=== PATIENT | female | born 1960 | race Caucasian/White ===

== ENCOUNTER 2017-08-07 19:43 | Inpatient (IN) ==
--- NOTE | 2017-08-07 19:49 | Emergency Department Note ---
Disposition Clinical Impression: Acute exacerbation of chronic obstructive pulmonary disease (COPD) Disposition: Admitted As Inpatient Condition: Good Referrals: Nica Smith CNP [Primary Care Provider] - General Adult HPI - General Stated complaint: Can't breath Time Seen by Provider: 08/07/17 19:45 Source: patient Mode of arrival: EMS Limitations: no limitations Nursing Notes Reviewed: Yes Vital Signs Reviewed: Yes - History of Present Illness HPI Narrative: Patient complains of a three-day history of increasing shortness of breath. She denies any chest pain. She had a cough with some whitish sputum production. She thinks she may have had a fever but she is not sure. She feels better here upon arrival to the emergency department. Onset (ago): day(s) (3) Location: chest Radiation: non-radiation Quality: other (pain in chest with cough) - Related Data Home Medications Medication Instructions Recorded Confirmed Albuterol Sulfate [Albuterol 2 puff IH Q4HR 01/09/16 08/07/17 Inhaler] Aspirin [Lo-Dose Aspirin EC] 81 mg PO DAILY 01/09/16 08/07/17 Budesonide/Formoterol 160/4.5 1 puff IH DAILY 01/09/16 08/07/17 [Symbicort 160/4.5] Ibuprofen [Motrin] 600 mg PO Q8HR PRN 01/09/16 08/07/17 Loratadine [Allergy Relief] 10 mg PO DAILY 01/09/16 08/07/17 Melatonin 5 mg PO HS 01/09/16 08/07/17 Metoprolol [Lopressor] 50 mg PO BID 01/09/16 08/07/17 Nitroglycerin [Nitrostat] 0.4 mg SL PRN PRN 01/09/16 08/07/17 Omeprazole [PriLOSEC] 20 mg PO DAILY 01/09/16 08/07/17 Ranolazine [Ranexa] 1,000 mg PO BID 01/09/16 08/07/17 TraZODone 50 mg PO HS 01/09/16 08/07/17 metFORMIN [Glucophage] 500 mg PO DAILY 01/09/16 08/07/17 Cholecalciferol (Vitamin D3) 2,000 unit PO 08/07/17 [Vitamin D3] Clopidogrel [Plavix] 75 mg PO DAILY 08/07/17 08/07/17 Cyanocobalamin (Vitamin B-12) 1,000 mcg PO DAILY 08/07/17 08/07/17 [Vitamin B-12] Gabapentin [Neurontin] 300 mg PO TID 08/07/17 08/07/17 Lisinopril [Zestril] 20 mg PO DAILY 08/07/17 08/07/17 Pantoprazole Sodium [Protonix] 40 mg PO QAM 08/07/17 08/07/17 Rosuvastatin Calcium [Crestor] 10 mg PO DAILY 08/07/17 08/07/17 Previous Rx's Medication Instructions Recorded Ondansetron ODT [Zofran ODT] 4 mg SL Q6HR PRN #12 tab.rapdis 01/09/16 Allergies Allergy/AdvReac Type Severity Reaction Status Date / Time aminophylline Allergy Anaphylaxis Verified 08/07/17 19:55 atorvastatin AdvReac Gastrointestinal Verified 08/07/17 19:55 Upset Penicillins AdvReac Hives Verified 08/07/17 19:55 Sulfa (Sulfonamide AdvReac Hives Verified 08/07/17 19:55 Antibiotics) regadenosen Allergy Swelling Uncoded 08/07/17 19:55 of Lip/Tongue/Throat All systems ED: reviewed and negative except as stated. Review of Systems: As Per HPI Constitutional: Denies: fever, chills, weakness, weight change Eyes: Denies: eye pain, eye discharge, vision change ENT ED: Denies: ear pain, throat pain, dental pain, hearing loss, epistaxis, congestion, dysphagia Cardiovascular: Denies: chest pain, palpitations, dyspnea on exertion, edema, syncope Respiratory: Reports: as per HPI, cough, dyspnea, wheezes. Denies: hemoptysis, stridor Gastrointestinal: Denies: abdominal pain, nausea, vomiting, diarrhea, constipation, hematemesis, melena, hematochezia Genitourinary: Denies: dysuria, frequency, hematuria, discharge Musculoskeletal: Denies: back pain, neck pain, arthralgia, myalgia Integumentary: Denies: rash, abrasion, lesions Neurological: Denies: headache, weakness, numbness, paresthesias, confusion, abnormal gait, vertigo Psychiatric: Denies: anxiety, depression, suicidal thoughts, homicidal thoughts , auditory hallucinations, visual hallucinations Endocrine: Denies: fatigue Hematological/Lymphatic: Denies: easy bleeding, easy bruising Allergic/Immunologic: Denies: facial swelling, urticaria Past Medical History - Past Medical History Attestation: Yes The following information was validated with the patient. Source: patient, nursing notes reviewed Medical history: Reports: asthma, cancer, COPD, diabetes, hypertension, myocardial infarction Surgical history: Reports: angioplasty/stent, cancer surgery, cholecystectomy Psychiatric history: Reports: no psych history - Social History Smoking Status: Former smoker Smokeless Tobacco Status: No Alcohol use: Reports: none Drug use: Reports: none Physical Exam - General Limitations: no limitations General appearance: alert, in no apparent distress - Head Head exam: atraumatic, normocephalic, normal inspection - Eye Eye exam: Present: normal appearance, PERRL, EOMI - ENT ENT exam: normal exam, normal oropharynx, mucous membranes moist - Neck Neck exam: Present: normal inspection, full ROM, trachea midline - Chest Chest inspection: Present: normal inspection, symmetric chest wall rise - Respiratory Respiratory exam: Present: wheezes, prolonged expiratory phase. Absent: respiratory distress - Cardiovascular Cardiovascular exam: Present: regular rate, normal rhythm, normal heart sounds - Abdominal Exam Abdominal exam: Present: soft - Extremities Exam Extremities exam: Present: normal inspection - Back Exam Back exam: Present: normal inspection - Neurological Exam Neurological exam: Present: alert, oriented X3 - Psychiatric Psychiatric exam: Present: normal affect, normal mood - Skin Skin exam: Present: warm, dry, intact Medical Decision Making - [facility] Narrative Medical decision making narrative: I discussed case Dr. Linda who agrees the the hospital and has accepted the admission - Lab Data Lab results reviewed: Yes I reviewed the patient's lab results. - Radiology Data Radiology results reviewed: Yes I reviewed the patient's radiology results. - EKG Data EKG #1 EKG attestation: Yes I reviewed and interpreted this EKG. EKG results narrative: EKG shows a relative sinus tachycardia with a rate of 103 bpm. SD interval 122 ms QRS duration 81 ms QT and QTC intervals 341 and 401 ms respectively. R axis of 63 degrees. Relative sinus tachycardia this is a relatively negative EKG
[2017-08-07] MEDS ORDERED: Ipratropium/Albuterol Neb 3 ML IH ONE ×2 (19:56→20:53)
[2017-08-07] MEDS ORDERED: methylPREDNISolone 125 MG/2 ML VIAL IVP ONE (19:57)
[2017-08-07] MEDS ORDERED: 0.9 % Sodium Chloride 1,000 ML IVC SCH ×2 (20:00→22:38)
[2017-08-07 20:26] LABS: Basophils % 0.4 %; Eosinophils % 0.3 %; Hematocrit 52.7 % (35.3-44.9); Hemoglobin 17.8 g/dL (11.5-15.4); Immature Granulocytes % 0.1 % (0-4); Lymphocytes # 1.2 K/mcL (0.6-4.6); Lymphocytes % 15.5 %; Mean Corpuscular HGB Conc 33.8 g/dL (31.6-35.5); Mean Corpuscular Hemoglobin 31.1 pg (28.0-33.3); Mean Platelet Volume 11.9 fL (9.4-12.4); Monocytes # 0.7 K/mcL (0.0-1.3); Monocytes % 8.5 %; Neutrophils # 5.8 K/mcL (1.6-8.9); Platelet Count 157 K/mcL (140-400); Red Blood Count 5.73 M/mcL (3.82-4.97); Red Cell Distribution Width 12.9 % (11.5-14.5); Segmented Neutrophils % 75.2 %
[2017-08-07 20:40] LABS: BUN/Creatinine Ratio 18 (6-26); Blood Urea Nitrogen 12 mg/dL (6-20); Calcium 9.4 mg/dL (8.6-10.3); Carbon Dioxide 28 mEq/L (23-29); Chloride 101 mEq/L (98-107); Glucose 154 mg/dL (70-105); Osmolality,Calculated 287 (280-300); Potassium 3.6 mEq/L (3.5-5.1); Sodium 137 mEq/L (136-145); eGFR For African Americans > 60 (> 60); eGFR For Non-African Americans > 60 (> 60)
[2017-08-07 20:43] LABS: Troponin I < 0.03 ng/mL (< 0.04)
[2017-08-07] MEDS ORDERED: Acetaminophen 325 MG TABLET PO ONE (21:16)
[2017-08-07] MEDS ORDERED: Naloxone 0.4 MG/ML INJ IVP PRN (22:38)
[2017-08-07] MEDS ORDERED: Ondansetron ODT 4 MG TAB.RAPDIS SL PRN (23:38)
[2017-08-07] MEDS ORDERED: Azithromycin 250 MG TABLET PO ONE (23:45)
[2017-08-07] MEDS: Ipratropium/Albuterol Neb 3 ML IH SCH (23:45)
[2017-08-08] MEDS: Gabapentin 300 MG CAPSULE PO SCH ×4 (00:11→21:08)
[2017-08-08] MEDS: Melatonin 3 MG TABLET PO SCH ×2 (00:11→21:08)
[2017-08-08] MEDS: Ranolazine 500 MG TAB.ER.12H PO SCH ×3 (00:11→21:08)
[2017-08-08] MEDS: traZODone 50 MG TABLET PO SCH ×2 (00:12→21:08)
[2017-08-08] MEDS: Ipratropium/Albuterol Neb 3 ML IH SCH ×7 (01:00→23:15)
[2017-08-08 05:35] LABS: Hematocrit 50.1 % (35.3-44.9); Hemoglobin 16.6 g/dL (11.5-15.4); Mean Corpuscular HGB Conc 33.1 g/dL (31.6-35.5); Mean Corpuscular Hemoglobin 30.9 pg (28.0-33.3); Mean Corpuscular Volume 93.3 fL (83.0-100.0); Platelet Count 161 K/mcL (140-400); Red Blood Count 5.37 M/mcL (3.82-4.97); Red Cell Distribution Width 12.9 % (11.5-14.5)
[2017-08-08 05:53] LABS: Alanine Aminotransferase 24 Units/L (7-52); Albumin 3.9 g/dL (3.5-5.7); Albumin/Globulin Ratio 1.4 (1.1-2.2); Alkaline Phosphatase 90 Units/L (34-104); Aspartate Amino Transferase 15 Units/L (13-39); BUN/Creatinine Ratio 20 (6-26); Bilirubin,Total 0.4 mg/dL (0.3-1.0); Blood Urea Nitrogen 14 mg/dL (6-20); Calcium 9.2 mg/dL (8.6-10.3); Carbon Dioxide 27 mEq/L (23-29); Chloride 102 mEq/L (98-107); Globulin 2.7 g/dL (2.4-3.5); Glucose 315 mg/dL (70-105); Osmolality,Calculated 291 (280-300); Potassium 4.4 mEq/L (3.5-5.1); Sodium 134 mEq/L (136-145); Total Protein 6.6 g/dL (6.4-8.9); eGFR For African Americans > 60 (> 60); eGFR For Non-African Americans > 60 (> 60)
--- NOTE | 2017-08-08 07:15 | Electrocardiograph Report ---
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
[2017-08-08] MEDS: Loratadine 10 MG TABLET PO SCH (08:30)
[2017-08-08] MEDS: *HR* Metformin 500 MG TABLET PO SCH (08:30)
[2017-08-08] MEDS: Lisinopril 20 MG TABLET PO SCH (08:30)
[2017-08-08] MEDS: Aspirin Enteric Coated 81 MG Tablet PO SCH (08:31)
[2017-08-08] MEDS: Ibuprofen 600 MG TABLET PO PRN ×2 (08:51→21:17)
[2017-08-08] MEDS ORDERED: NON-FORMULARY MEDICATION 1 EACH EACH (Pantoprazole Sodium [Protonix] 40 MG) PO SCH (09:00)
[2017-08-08] MEDS: Budesonide/Formoterol 160/4.5 MDI IH SCH (09:10)
--- NOTE | 2017-08-08 13:29 | Internal Med History&Physical ---
Date of Encounter: 08/08/17 Time of Encounter: 13:24 Assessment and Plan (1) Acute exacerbation of chronic obstructive pulmonary disease (COPD) Current visit: Yes Status: Acute Continue steroids, azithromycin, inhaled breathing treatments, oxygen. Will follow for improvement. (2) Essential hypertension Current visit: Yes Status: Acute Controlled with current medication. Monitor blood pressure. (3) Diabetes type 2, controlled Current visit: Yes Status: Acute Elevated glucose levels. Will add Humalog per sliding scale. Monitor fingerstick blood sugars will adjust as necessary. Qualifiers: Diabetes mellitus ad terminal makeup operator insulin use: without ad terminal makeup operator use Diabetes mellitus complication status: without complication Qualified Code(s): E11.9 - Type 2 diabetes mellitus without complications Internal Medicine - H&P: HPI Admitted From: Emergency Dept Plans for Post Hospital Care: Home History of present illness: Ms. Espinoza is a 56 year old female on unit for observation after going to the ER last night with SOB. states SOB started 3 days ago. unaware of ill contacts. states wheezing with prod cough with white sputum. denies fever, chills, NVD. smokes cigarettes about 1/2 pack a day for the past year and 2-3 packs a day for many years prior to that. PMH includes: COPD,hypertension, hyperlipidemia , CAD with stent placement 1 year ago, DM2 without insulin. glucose elevated probable to steroids. discussed starting low dose insulin coverage. maintaining O2 sats 93% at 2 liters per NC. Past Med Surg Social Fam HX - Past Medical History Medical history: asthma, cancer, COPD, diabetes, hypertension, myocardial infarction Psychiatric history: no psych history - Past Surgical History Surgical History: angioplasty/stent, cancer surgery, cholecystectomy - Social History Smoking Status: Former smoker Smokeless Tobacco Status: No Alcohol use: none Drug use: none - Family History Mother Hx Family Cardiac Disorders: Yes (HTN, open heart surgery) Hx Family Respiratory Disorders: No Hx Family Cancer: Yes (Breast Cancer) Hx Family GI Disorders: No Hx Family Genitourinary Disorders: No Hx Family Endocrine Disorder: Yes (DM) Hx Family Musculoskeletal Disorders: No Hx Family Neuromuscular Disorders: No Hx Family Neurologic Disorders: No Hx Family HEENT Disorders: No Hx Family Autoimmune Disorders: No Hx Family Reproductive Disorders: No Hx Family Psychosocial Disorders: No Hx Family Medical Disorders: No Father History Unknown: Yes Internal Medicine - H&P: Meds Albuterol Sulfate [Albuterol Inhaler] 2 puff IH Q4HR 01/09/16 [History] Aspirin [Lo-Dose Aspirin EC] 81 mg PO DAILY 01/09/16 [History] Budesonide/Formoterol 160/4.5 [Symbicort 160/4.5] 1 puff IH DAILY 01/09/16 [ History] Ibuprofen [Motrin] 600 mg PO Q8HR PRN 01/09/16 [History] Loratadine [Allergy Relief] 10 mg PO DAILY 01/09/16 [History] Melatonin 5 mg PO HS 01/09/16 [History] Metoprolol [Lopressor] 50 mg PO BID 01/09/16 [History] Nitroglycerin [Nitrostat] 0.4 mg SL PRN PRN 01/09/16 [History] Omeprazole [PriLOSEC] 20 mg PO DAILY 01/09/16 [History] Ondansetron ODT [Zofran ODT] 4 mg SL Q6HR PRN #12 tab.rapdis 01/09/16 [Rx] Ranolazine [Ranexa] 1,000 mg PO BID 01/09/16 [History] TraZODone 50 mg PO HS 01/09/16 [History] metFORMIN [Glucophage] 500 mg PO DAILY 01/09/16 [History] Cholecalciferol (Vitamin D3) [Vitamin D3] 2,000 unit PO 08/07/17 [History] Clopidogrel [Plavix] 75 mg PO DAILY 08/07/17 [History] Cyanocobalamin (Vitamin B-12) [Vitamin B-12] 1,000 mcg PO DAILY 08/07/17 [ History] Gabapentin [Neurontin] 300 mg PO TID 08/07/17 [History] Lisinopril [Zestril] 20 mg PO DAILY 08/07/17 [History] Pantoprazole Sodium [Protonix] 40 mg PO QAM 08/07/17 [History] Rosuvastatin Calcium [Crestor] 10 mg PO DAILY 08/07/17 [History] 3 Allergy/AdvReac Type Severity Reaction Status Date / Time aminophylline Allergy Anaphylaxis Verified 08/07/17 19:55 atorvastatin AdvReac Gastrointestinal Verified 08/07/17 19:55 Upset Penicillins AdvReac Hives Verified 08/07/17 19:55 Sulfa (Sulfonamide AdvReac Hives Verified 08/07/17 19:55 Antibiotics) regadenosen Allergy Swelling Uncoded 08/07/17 19:55 of Lip/Tongue/Throat All Systems PM: A 10-system review of systems was performed and is negative for pertinent findings except as documented above in the HPI. - Constitutional Constitutional: as per HPI - EENT Eyes: no change in vision, no discharge, no pain, no photophobia Ears: no ear discharge, no ear pain, no tinnitus Nose, mouth and throat: no dysphagia, no nasal discharge, no neck pain, no sore throat - Cardiovascular Cardiovascular ROS IM: no chest pain, no diaphoresis, no dyspnea, no lightheadedness, no palpitations, no syncope - Respiratory Respiratory: cough, dyspnea, wheezing, no excessive phlegm production - Gastrointestinal Gastrointestinal: no abdominal pain, no diarrhea, no hematemesis, no hematochezia, no melena, no nausea, no vomiting - Genitourinary Genitourinary: no change in urinary stream, no dysuria, no flank pain, no hematuria - Musculoskeletal Musculoskeletal ROS IM: no numbness, no tingling - Integumentary Integumentary IM: no rash, no unusual bruising - Neurological Neurological ROS: no confusion, no convulsions, no focal weakness, no numbness, no tingling, no tremor(s) - Hematologic/Lymphatic Hematologic/Lymphatic: no easy bruising - Constitutional Vitals: Temp Pulse Resp BP Pulse Ox 98.1 F 87 20 129/83 92 08/08/17 11:39 08/08/17 11:39 08/08/17 11:39 08/08/17 11:39 08/08/17 11:39 General appearance: Present: cooperative, A&O X 3, pleasant, obese, answers questions appropriately - Head Head exam: Present: atraumatic, normocephalic - Eye Eye exam: Present: PERRL, conjuntiva pink, sclera anicteric Pupils: Present: PERRL - Neck Neck exam general surgery: Present: supple, trachea midline. Absent: lymphadenopathy - Respiratory Respiratory exam: Present: prolonged expiratory phase, wheezes. Absent: accessory muscle use, rales, rhonchi Additional comments: labored breathing. - Cardiovascular Cardiovascular exam: Present: RRR, +S1, +S2. Absent: diastolic murmur, gallop, rubs, systolic murmur - GI/Abdominal GI/Abdominal exam: Present: normal bowel sounds, soft, no peritoneal signs. Absent: distended, tenderness - Extremities Exam Extremities exam: Present: warm, radial pulses palpable and symmetrical. Absent : calf tenderness, cyanotic, pedal edema - Neurological Exam Neurological exam: Present: CN II-XII intact, oriented X3, no focal deficits. Absent: pronater drift, facial droop, speech deficit - Skin Skin exam: Present: dry, intact Internal Med - H&P Results - Labs CBC & Chem 7: 08/08/17 05:15 08/08/17 05:15 Labs: Short CBC 08/08/17 Range/Units 05:15 WBC 9.1 (4.3-11.1) K/mcL Hgb 16.6 H (11.5-15.4) g/dL Hct 50.1 H (35.3-44.9) % Plt Count 161 (140-400) K/mcL BMP 08/08/17 05:15 Sodium 134 L Potassium 4.4 Chloride 102 Carbon Dioxide 27 BUN 14 Creatinine 0.71 Glucose 315 H Calcium 9.2 Liver Function 08/08/17 Range/Units 05:15 Total Bilirubin 0.4 (0.3-1.0) mg/dL AST 15 (13-39) Units/L ALT 24 (7-52) Units/L Alkaline Phosphatase 90 (34-104) Units/L Albumin 3.9 (3.5-5.7) g/dL
[2017-08-08] MEDS ORDERED: *HR* Dextrose 50 % in Water (Syg) 50 ML SYRINGE IVP PRN (13:39)
[2017-08-08] MEDS ORDERED: D5% in Water 1,000 ML IVC PRN (13:39)
[2017-08-08] MEDS ORDERED: Dextrose Gel 15 GM/37.5 ML TUBE PO PRN ×2 (13:39)
[2017-08-08] MEDS ORDERED: Ipratropium Neb 0.5 MG NEBULIZER IH ONE (14:28)
[2017-08-08] MEDS ORDERED: Albuterol 2.5 MG/3 ML NEBULIZER IH ONE ×2 (14:28→16:38)
[2017-08-08] MEDS ORDERED: Ipratropium Neb 0.5 MG NEBULIZER ONE (14:28)
[2017-08-08] MEDS ORDERED: Albuterol 2.5 MG/3 ML NEBULIZER ONE (14:28)
[2017-08-08 15:20] LABS: ABG Base Excess -1 mEq/L (-2 to 3); ABG HCO3 27 mEq/L (21-27); ABG Oxygen Saturation 89 % (95-98); ABG PCO2 54 mmHg (35-45); ABG PO2 63 mmHg (85-104); ABG TCO2 29 mEq/L (20-26)
[2017-08-08] MEDS ORDERED: Furosemide 40 MG/4 ML VIAL IVP ONE (15:32)
--- NOTE | 2017-08-08 16:33 | Electrocardiograph Report ---
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
[2017-08-08] MEDS: Insulin LISPRO 300 UNITS/3 ML VIAL SQ SCH ×2 (17:02→21:06)
[2017-08-08] MEDS: methylPREDNISolone 125 MG/2 ML VIAL IVP SCH ×2 (17:02→23:15)
[2017-08-08] MEDS: Azithromycin 250 MG TABLET PO SCH (17:02)
[2017-08-09] MEDS: Ipratropium/Albuterol Neb 3 ML IH SCH ×5 (04:14→20:04)
[2017-08-09] MEDS: Lisinopril 20 MG TABLET PO SCH (09:30)
[2017-08-09] MEDS: Gabapentin 300 MG CAPSULE PO SCH ×3 (09:30→20:08)
[2017-08-09] MEDS: Aspirin Enteric Coated 81 MG Tablet PO SCH (09:30)
[2017-08-09] MEDS: *HR* Metformin 500 MG TABLET PO SCH (09:31)
[2017-08-09] MEDS: Loratadine 10 MG TABLET PO SCH (09:31)
[2017-08-09] MEDS: Insulin LISPRO 300 UNITS/3 ML VIAL SQ SCH ×4 (09:31→22:46)
[2017-08-09] MEDS: Ranolazine 500 MG TAB.ER.12H PO SCH ×2 (09:31→20:06)
[2017-08-09] MEDS: Ibuprofen 600 MG TABLET PO PRN ×2 (09:31→20:12)
[2017-08-09] MEDS: methylPREDNISolone 125 MG/2 ML VIAL IVP SCH ×2 (09:32→18:39)
[2017-08-09] MEDS: Budesonide/Formoterol 160/4.5 MDI IH SCH (09:32)
--- NOTE | 2017-08-09 12:36 | Internal Med Progress Note ---
Date of Encounter: 08/09/17 Time of Encounter: 12:34 - Assessment and plan (1) Acute exacerbation of chronic obstructive pulmonary disease (COPD) Current Visit: Yes Status: Acute Assessment and plan: Patient is working breath has improved overnight. Patient continues to have slight expiratory wheezes heard to upper [place] and diminished breath sounds to the lower basilar [place]. Team productive cough with thick mccullough sputum received. Patient's saturations has maintained greater than 90% while on oxygen. We will continue with current plan of care and bronchodilators. He should continue using BiPAP overnight, which she tolerated well last evening. Patient to continue on current antibiotics and corticosteroids. (2) CAD (coronary artery disease) Current Visit: Yes Status: Chronic Assessment and plan: No acute issues. library monitor shows sinus rhythm with occasional unifocal PVCs. Ventricular rate has been less than 100. Patient denies any chest discomforts or palpitations. We will continue on current medications. Qualifiers: Coronary Disease-Associated Artery/Lesion type: [place] artery [place] vs. transplanted heart: saxman heart Associated angina: without angina Qualified Code(s): I25.10 - Atherosclerotic heart disease of [place] coronary artery without angina pectoris (3) Essential hypertension Current Visit: Yes Status: Acute Assessment and plan: Vital signs have remained stable. We will continue with current medications. (4) Diabetes type 2, controlled Current Visit: Yes Status: Acute Assessment and plan: Patient's glucose has been elevated greater than 250. Patient currently is on cortical steroids due to her exacerbation of COPD. We will continue with sliding scale coverage Qualifiers: Diabetes mellitus terminal make up operator insulin use: without [facility] use Diabetes mellitus complication status: without complication Qualified Code(s): E11.9 - Type 2 diabetes mellitus without complications - Time Spent With Patient less than 15 minutes - Subjective Interval history: Patient denies any discomfort but continues to have complaints of dyspnea. Patient states that she feels her breathing has improved slightly overnight. Patient also complains of increased sputum production with sputum received being mccullough and thick. Patient states that she was able to use her BiPAP overnight and that it did improve her breathing effort - Constitutional Vitals: Temp Pulse Resp BP Pulse Ox 97.1 F L 69 14 96/58 95 08/09/17 08:00 08/09/17 08:00 08/09/17 08:00 08/09/17 08:00 08/09/17 08:00 General appearance: Present: cooperative, A&O X 3, pleasant, obese, answers questions appropriately - Head Head exam: Present: atraumatic, normocephalic - Eye Eye exam: Present: PERRL, conjuntiva pink, sclera anicteric Pupils: Present: PERRL - Neck Neck exam general surgery: Present: supple, trachea midline. Absent: lymphadenopathy - Respiratory Respiratory exam: Present: CTAB, wheezes. Absent: accessory muscle use, rales, rhonchi Additional comments: Patient noted to have slight expiratory wheezes or to the upper [place] and diminished basilar [place]. Productive cough with mccullough thick sputum received. Respiratory effort appears relaxed while patient was resting in bed. Saturation was 92% while on oxygen at rest. - Cardiovascular Cardiovascular exam: Present: RRR, +S1, +S2. Absent: diastolic murmur, gallop, rubs, systolic murmur Additional comments: library monitor shows sinus rhythm with occasional unifocal PVC. Ventricular rate is less than 100. - GI/Abdominal GI/Abdominal exam: Present: normal bowel sounds, soft, no peritoneal signs. Absent: distended, tenderness - Extremities Exam Extremities exam: Present: warm, radial pulses palpable and symmetrical. Absent : calf tenderness, cyanotic, pedal edema - Neurological Exam Neurological exam: Present: CN II-XII intact, oriented X3, no focal deficits. Absent: pronater drift, facial droop, speech deficit - Skin Skin exam: Present: dry, intact Internal Medicine: Result - Labs CBC & Chem 7: 08/08/17 05:15 18 05:15 Labs: Cardiac Enzymes 08/08/17 08/08/17 Range/Units 14:53 21:05 Troponin I < 0.03 < 0.03 (< 0.04) ng/mL - ABG Interpretation ABG results: ABG ABG pH 7.30 pH Units (7.32-7.45) L 08/08/17 15:17 ABG pCO2 54 mmHg (35-45) H 08/08/17 15:17 ABG pO2 63 mmHg (85-104) L 08/08/17 15:17 ABG O2 Saturation 89 % (95-98) L 08/08/17 15:17 - VTE Reasons for not Prescribing Prophylaxis: Treatment not Indicated - Low risk for VTE Documentation of Mechanical Device: Graduated compression elastic hosiery Consult Discharge Plan - Plan Referrals: Nica Smith, ENGINEERING DOCUMENT CONTROL CLERK [Primary Care Provider] -
[2017-08-09] MEDS: Azithromycin 250 MG TABLET PO SCH (14:41)
--- NOTE | 2017-08-09 16:20 | Electrocardiograph Report ---
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
[2017-08-09] MEDS: Melatonin 3 MG TABLET PO SCH (20:08)
[2017-08-09] MEDS: traZODone 50 MG TABLET PO SCH (20:08)
[2017-08-10] MEDS: Ipratropium/Albuterol Neb 3 ML IH SCH ×6 (00:13→22:10)
[2017-08-10] MEDS: methylPREDNISolone 125 MG/2 ML VIAL IVP SCH ×3 (01:50→18:09)
[2017-08-10] MEDS: *HR* Enoxaparin 40 MG/0.4 ML SYRINGE SQ SCH (05:09)
[2017-08-10 07:24] LABS: Basophils % 0.2 %; Hemoglobin 15.5 g/dL (11.5-15.4); Immature Granulocytes % 1.4 % (0-4); Lymphocytes # 1.3 K/mcL (0.6-4.6); Lymphocytes % 10.2 %; Mean Corpuscular HGB Conc 32.3 g/dL (31.6-35.5); Mean Corpuscular Hemoglobin 30.7 pg (28.0-33.3); Mean Platelet Volume 12.2 fL (9.4-12.4); Monocytes # 0.3 K/mcL (0.0-1.3); Monocytes % 2.6 %; Neutrophils # 10.7 K/mcL (1.6-8.9); Platelet Count 184 K/mcL (140-400); Red Blood Count 5.05 M/mcL (3.82-4.97); Red Cell Distribution Width 13.3 % (11.5-14.5); Segmented Neutrophils % 85.6 %
[2017-08-10 07:35] LABS: Alanine Aminotransferase 17 Units/L (7-52); Albumin 3.8 g/dL (3.5-5.7); Albumin/Globulin Ratio 1.6 (1.1-2.2); Alkaline Phosphatase 80 Units/L (34-104); Aspartate Amino Transferase 10 Units/L (13-39); BUN/Creatinine Ratio 52 (6-26); Bilirubin,Total 0.3 mg/dL (0.3-1.0); Blood Urea Nitrogen 43 mg/dL (6-20); Calcium 9.6 mg/dL (8.6-10.3); Carbon Dioxide 33 mEq/L (23-29); Chloride 101 mEq/L (98-107); Globulin 2.4 g/dL (2.4-3.5); Glucose 314 mg/dL (70-105); Magnesium 2.1 mg/dL (1.6-2.6); Osmolality,Calculated 307 (280-300); Potassium 4.4 mEq/L (3.5-5.1); Sodium 137 mEq/L (136-145); Total Protein 6.2 g/dL (6.4-8.9); eGFR For African Americans > 60 (> 60); eGFR For Non-African Americans > 60 (> 60)
[2017-08-10] MEDS: Budesonide/Formoterol 160/4.5 MDI IH SCH (08:00)
[2017-08-10] MEDS: Insulin LISPRO 300 UNITS/3 ML VIAL SQ SCH ×4 (08:01→22:10)
[2017-08-10] MEDS: *HR* Metformin 500 MG TABLET PO SCH (08:07)
[2017-08-10] MEDS: Lisinopril 20 MG TABLET PO SCH (08:07)
[2017-08-10] MEDS: Gabapentin 300 MG CAPSULE PO SCH ×3 (08:07→22:10)
[2017-08-10] MEDS: Ibuprofen 600 MG TABLET PO PRN ×2 (08:08→18:10)
[2017-08-10] MEDS: Ranolazine 500 MG TAB.ER.12H PO SCH ×2 (08:08→22:10)
[2017-08-10] MEDS: Loratadine 10 MG TABLET PO SCH (08:09)
[2017-08-10] MEDS: Aspirin Enteric Coated 81 MG Tablet PO SCH (08:09)
[2017-08-10] MEDS: Azithromycin 250 MG TABLET PO SCH (13:04)
--- NOTE | 2017-08-10 15:33 | Internal Med Progress Note ---
Date of Encounter: 08/10/17 Time of Encounter: 15:31 - Assessment and plan (1) Acute exacerbation of chronic obstructive pulmonary disease (COPD) Current Visit: Yes Status: Acute Assessment and plan: Continue CPAP. Continue inhaled meds treatments. (2) Essential hypertension Current Visit: Yes Status: Acute Assessment and plan: Controlled with current medication. Monitor blood pressure. (3) Diabetes type 2, controlled Current Visit: Yes Status: Acute Assessment and plan: Controlled with current medication. Monitor Qualifiers: Diabetes mellitus shelter insulin use: without termite technician use Diabetes mellitus complication status: without complication Qualified Code(s): E11.9 - Type 2 diabetes mellitus without complications - Time Spent With Patient less than 15 minutes - Subjective Interval history: Patient states continues to have wheezing. Wearing CPAP. Denies cough, fever, chills, nausea, vomiting or diarrhea. Denies chest pain. States shortness of breath is improving but still short of breath. - Constitutional Vitals: Temp Pulse Resp BP Pulse Ox 97.8 F 73 20 113/62 95 08/10/17 11:30 08/10/17 11:30 08/10/17 11:30 08/10/17 11:30 08/10/17 11:30 General appearance: Present: cooperative, A&O X 3, pleasant, obese, answers questions appropriately - Head Head exam: Present: atraumatic, normocephalic - Eye Eye exam: Present: PERRL, conjuntiva pink, sclera anicteric Pupils: Present: PERRL - Neck Neck exam general surgery: Present: supple, trachea midline. Absent: lymphadenopathy - Respiratory Respiratory exam: Present: prolonged expiratory phase, wheezes. Absent: accessory muscle use, rales, rhonchi - Cardiovascular Cardiovascular exam: Present: RRR, +S1, +S2. Absent: diastolic murmur, gallop, rubs, systolic murmur - GI/Abdominal GI/Abdominal exam: Present: normal bowel sounds, soft, no peritoneal signs. Absent: distended, tenderness - Extremities Exam Extremities exam: Present: warm, radial pulses palpable and symmetrical. Absent : calf tenderness, cyanotic, pedal edema - Neurological Exam Neurological exam: Present: CN II-XII intact, oriented X3, no focal deficits. Absent: pronater drift, facial droop, speech deficit - Skin Skin exam: Present: dry, intact Internal Medicine: Result - Labs CBC & Chem 7: 08/10/17 06:57 08/10/17 06:57 Labs: Short CBC 08/10/17 Range/Units 06:57 WBC 12.5 H (4.3-11.1) K/mcL Hgb 15.5 H (11.5-15.4) g/dL Hct 48.0 H (35.3-44.9) % Plt Count 184 (140-400) K/mcL Neutrophils # 10.7 H (1.6-8.9) K/mcL BMP 08/10/17 06:57 Sodium 137 Potassium 4.4 Chloride 101 Carbon Dioxide 33 H BUN 43 H Creatinine 0.83 Glucose 314 H Calcium 9.6 Liver Function 08/10/17 Range/Units 06:57 Total Bilirubin 0.3 (0.3-1.0) mg/dL AST 10 L (13-39) Units/L ALT 17 (7-52) Units/L Alkaline Phosphatase 80 (34-104) Units/L Albumin 3.8 (3.5-5.7) g/dL - ABG Interpretation ABG results: ABG ABG pH 7.30 pH Units (7.32-7.45) L 08/08/17 15:17 ABG pCO2 54 mmHg (35-45) H 08/08/17 15:17 ABG pO2 63 mmHg (85-104) L 08/08/17 15:17 ABG O2 Saturation 89 % (95-98) L 08/08/17 15:17 - VTE Reasons for not Prescribing Prophylaxis: Treatment not Indicated - Low risk for VTE Documentation of Mechanical Device: Graduated compression elastic hosiery Consult Discharge Plan - Plan Referrals: Nica Smith, MATTRESS STUFFER [Primary Care Provider] -
[2017-08-10] MEDS: Melatonin 3 MG TABLET PO SCH (22:09)
[2017-08-10] MEDS: traZODone 50 MG TABLET PO SCH (22:10)
[2017-08-11] MEDS: methylPREDNISolone 125 MG/2 ML VIAL IVP SCH ×3 (00:21→17:18)
[2017-08-11] MEDS: Ipratropium/Albuterol Neb 3 ML IH SCH ×6 (01:00→20:34)
[2017-08-11] MEDS: *HR* Enoxaparin 40 MG/0.4 ML SYRINGE SQ SCH (06:37)
[2017-08-11 06:44] LABS: Basophils % 0.2 %; Hematocrit 45.6 % (35.3-44.9); Hemoglobin 14.9 g/dL (11.5-15.4); Immature Granulocytes % 0.9 % (0-4); Lymphocytes # 1.5 K/mcL (0.6-4.6); Mean Corpuscular HGB Conc 32.7 g/dL (31.6-35.5); Mean Corpuscular Volume 94.8 fL (83.0-100.0); Mean Platelet Volume 11.5 fL (9.4-12.4); Monocytes # 0.2 K/mcL (0.0-1.3); Monocytes % 2.6 %; Neutrophils # 7.4 K/mcL (1.6-8.9); Platelet Count 174 K/mcL (140-400); Red Blood Count 4.81 M/mcL (3.82-4.97); Red Cell Distribution Width 13.2 % (11.5-14.5); Segmented Neutrophils % 80.5 %
[2017-08-11 06:52] LABS: Lymphocytes % 15.8 %
[2017-08-11] MEDS: Gabapentin 300 MG CAPSULE PO SCH ×3 (08:13→20:30)
[2017-08-11] MEDS: Insulin LISPRO 300 UNITS/3 ML VIAL SQ SCH ×4 (08:13→20:31)
[2017-08-11] MEDS: Aspirin Enteric Coated 81 MG Tablet PO SCH (08:13)
[2017-08-11] MEDS: Lisinopril 20 MG TABLET PO SCH (08:14)
[2017-08-11] MEDS: Loratadine 10 MG TABLET PO SCH (08:14)
[2017-08-11] MEDS: *HR* Metformin 500 MG TABLET PO SCH (08:14)
[2017-08-11] MEDS: Ranolazine 500 MG TAB.ER.12H PO SCH ×2 (08:14→20:30)
[2017-08-11] MEDS: Budesonide/Formoterol 160/4.5 MDI IH SCH (08:15)
--- NOTE | 2017-08-11 11:33 | Internal Med Progress Note ---
Date of Encounter: 08/11/17 Time of Encounter: 08:40 - Assessment and plan (1) Acute exacerbation of chronic obstructive pulmonary disease (COPD) Current Visit: Yes Status: Acute Assessment and plan: I spoke at length with the patient about her options. She is fine with staying here, for now. I spoke with the respiratory therapist about further assessing her. We will begin with O2 saturation, saturation monitoring, and pulmonary functions. We may consider also another chest x-ray. (2) Diabetes type 2, controlled Current Visit: Yes Status: Acute Assessment and plan: It has been slightly worse with her steroids. Will continue her home regimen and sliding scale insulin. Qualifiers: Diabetes mellitus care home insulin use: without care home use Diabetes mellitus complication status: without complication Qualified Code(s): E11.9 - Type 2 diabetes mellitus without complications (3) CAD (coronary artery disease) Current Visit: Yes Status: Chronic Assessment and plan: Clinically stable but I reinstructed patient on the use of nitroglycerin as needed. She is to notify nursing immediately should she develop any chest discomfort. None for at least 24 hours. Qualifiers: Coronary Disease-Associated Artery/Lesion type: [place] artery [place] vs. transplanted heart: [place] heart Associated angina: without angina Qualified Code(s): I25.10 - Atherosclerotic heart disease of [place] coronary artery without angina pectoris (4) Essential hypertension Current Visit: Yes Status: Acute Assessment and plan: Clinically stable. We will continue home regimen and follow. - Time Spent With Patient 25 - 35 minutes - Subjective Interval history: Discussed situation at length with patient: Patient informed nursing yesterday that she felt she was not improving. She wanted to be transferred to [facility] in [place]. She felt that she had possible fungus infection from her hernández and that this was not being addressed. I told the nurse that I would try to speak with cardiology at [facility] in [place], as requested by patient. I felt this was appropriate in terms of her desire to see a queen's counsel. I tried for 20 minutes to receive a call back from a human. After several calls and an interrupted attempt, I finally spoke with a human who was able to say that they would reach cardiology and have him call me back. I spoke with cardiology there, Dr. Vaca (spelling?). He felt that the situation seemed reasonable for transfer and agreed to accept the patient in transfer if the hospitalists would not. I spoke with a Dr. Gayle who was the nocturnal leather production machine operator who felt that because there was no acute situation involved, the patient would have to use and her own money for transport and/or the remainder of the hospitalization. The connection was bad and I was unable to communicate with the hospitalist who felt that I was here at the facility with the patient, at that time. I informed her that I was not at the facility and that the patient nurse could make this information known to patient. I was informed by patient nurse that this had been transmitted to patient and decided not to go to the other hospital. Patient has had a reasonable night without any worsening of breathing, possibly a little bit better. She denies chest pain since yesterday. She has had a lot of gas with no bowel movement. She has 2-3 out of 10 abdominal discomfort. She continued to have a lot of cough yesterday but it was totally nonproductive. I notified her that any reaction to any finding of fungal illness would be suppressed by her steroids, currently, anyway. Ice dated that this should not be evaluated, at this time. Patient has no complaint of chest discomfort, dyspnea, orthopnea, palpitations, nausea or vomiting, constipation or diarrhea, other changes in bowel habits, difficulty with urination, rash or itching, or other new complaints, except as mentioned above. Review of systems is otherwise negative. - Constitutional Vitals: Temp Pulse Resp BP Pulse Ox 98.1 F 82 16 133/79 97 08/11/17 08:00 08/11/17 08:00 08/11/17 08:00 08/11/17 08:00 08/11/17 08:00 General appearance: Present: cooperative, pleasant, obese, answers questions appropriately Exam: Examination: (Except as mentioned above): General: In no apparent distress. Alert and oriented 3. Nondiaphoretic. Head: Atraumatic and normocephalic. Respiratory: No use of accessory muscles. Diffuse sonorous rhonchi, again without wheezes. Airflow is improved slightly versus yesterday. Cardiovascular: Regular rate and rhythm without murmur appreciated. Abdomen: Bowel sounds are normal. No hepatosplenomegaly mass or tenderness appreciated. Obese and therefore difficult to palpate deeply. Patient is examined upright in bed and this also limits exam. Extremities: No cyanosis clubbing or edema. Skin: Warm and non-diaphoretic with no new lesions noted. Internal Medicine: Result - Labs CBC & Chem 7: 08/11/17 06:10 08/10/17 06:57 Labs: Short CBC 08/11/17 Range/Units 06:10 WBC 9.2 (4.3-11.1) K/mcL Hgb 14.9 (11.5-15.4) g/dL Hct 45.6 H (35.3-44.9) % Plt Count 174 (140-400) K/mcL Neutrophils # 7.4 (1.6-8.9) K/mcL - ABG Interpretation ABG results: ABG ABG pH 7.30 pH Units (7.32-7.45) L 08/08/17 15:17 ABG pCO2 54 mmHg (35-45) H 08/08/17 15:17 ABG pO2 63 mmHg (85-104) L 08/08/17 15:17 ABG O2 Saturation 89 % (95-98) L 08/08/17 15:17 - VTE Reasons for not Prescribing Prophylaxis: Treatment not Indicated - Low risk for VTE Documentation of Mechanical Device: Graduated compression elastic hosiery Consult Discharge Plan - Plan Referrals: Nica Smith, GOLF BALL MARKER [Primary Care Provider] -
--- NOTE | 2017-08-11 13:48 | Event Note ---
Date of Encounter: 08/11/17 Time of Encounter: 13:37 Patient continues to complain of dyspnea with minimal exertion. Patient was placed on room air with her oxygen saturation dropping to the low 80's at rest and had to be place back on oxygen and titrated to maintain saturations >90%. Patient had a ABG drawn which showed respiratory failure with PCO2 of 54, PO2 63 and a pH of 7.30. Patient initially was very short of breath with pronounced expiratory wheezes, which required being placed on a BiPAP. Patient has been wearing BiPAP nightly for past 2 nights and prn for dyspnea, with improvement of her saturations and diminishing her expiratory wheezes during exam. Patient continues on cortical steroids, bronchodilators and antibiotics. Patient states that she uses a CPAP at home, but due to her advanced COPD and respiratory failure, I wound recommend that that she should use a BiPAP. With her desaturations and hypercapnea, I would recommend overnight use of BiPAP and prn for dyspnea.
[2017-08-11] MEDS: Azithromycin 250 MG TABLET PO SCH (15:13)
[2017-08-11] MEDS: Melatonin 3 MG TABLET PO SCH (20:29)
[2017-08-11] MEDS: traZODone 50 MG TABLET PO SCH (20:30)
[2017-08-11] MEDS: Ibuprofen 600 MG TABLET PO PRN (20:49)
[2017-08-12] MEDS: methylPREDNISolone 125 MG/2 ML VIAL IVP SCH ×5 (01:57→23:55)
[2017-08-12] MEDS: Ipratropium/Albuterol Neb 3 ML IH SCH ×6 (01:57→21:19)
[2017-08-12] MEDS: *HR* Enoxaparin 40 MG/0.4 ML SYRINGE SQ SCH (06:25)
[2017-08-12] MEDS: Ranolazine 500 MG TAB.ER.12H PO SCH ×2 (08:04→21:18)
[2017-08-12] MEDS: Aspirin Enteric Coated 81 MG Tablet PO SCH (08:04)
[2017-08-12] MEDS: Lisinopril 20 MG TABLET PO SCH (08:05)
[2017-08-12] MEDS: Loratadine 10 MG TABLET PO SCH (08:05)
[2017-08-12] MEDS: Gabapentin 300 MG CAPSULE PO SCH ×3 (08:06→21:17)
[2017-08-12] MEDS: *HR* Metformin 500 MG TABLET PO SCH (08:06)
[2017-08-12] MEDS: Ibuprofen 600 MG TABLET PO PRN (08:06)
[2017-08-12] MEDS: Insulin LISPRO 300 UNITS/3 ML VIAL SQ SCH ×3 (08:07→17:04)
[2017-08-12] MEDS: Budesonide/Formoterol 160/4.5 MDI IH SCH (08:10)
[2017-08-12] MEDS: Azithromycin 250 MG TABLET PO SCH (12:21)
[2017-08-12] MEDS ORDERED: Insulin LISPRO 300 UNITS/3 ML VIAL SQ SCH (13:36)
--- NOTE | 2017-08-12 13:52 | Internal Med Progress Note ---
Date of Encounter: 08/12/17 Time of Encounter: 12:05 - Assessment and plan (1) Acute exacerbation of chronic obstructive pulmonary disease (COPD) Current Visit: Yes Status: Acute Assessment and plan: Patient is not much different than yesterday but possibly slightly improved. She continues to have cough, at night, she denies this with people in the [place] and nursing notes that she was coughing a lot. It is nonproductive, when she admits having it. (2) Diabetes type 2, controlled Current Visit: Yes Status: Acute Qualifiers: Diabetes mellitus nursing home insulin use: without terminologist use Diabetes mellitus complication status: without complication Qualified Code(s): E11.9 - Type 2 diabetes mellitus without complications (3) CAD (coronary artery disease) Current Visit: Yes Status: Chronic Qualifiers: Coronary Disease-Associated Artery/Lesion type: [place] artery [place] vs. transplanted heart: [place] heart Associated angina: without angina Qualified Code(s): I25.10 - Atherosclerotic heart disease of [place] coronary artery without angina pectoris (4) Essential hypertension Current Visit: Yes Status: Acute - Subjective Interval history: Patient feels that she is not any better, still feels tired. Has minimal cough. However, people across the [place] note that she is coughing almost long. She denies productivity of phlegm and still blames her problem on her chickens at home. She has not had a bowel movement for 4 days. We have increased her laxatives and anticipation of a movement. She feels she has one episode of chest pain which should have had nitroglycerin for same but was not given this by nurses. She states that this is resolved. Patient has no complaint of chest discomfort, dyspnea, orthopnea, palpitations, nausea or vomiting, constipation or diarrhea, other changes in bowel habits, difficulty with urination, rash or itching, or other new complaints, except as mentioned above. Review of systems is otherwise negative. Note: This note was completed yesterday but I have tried several times to completed today. The information submitted is different each time while on the progress note. I hope this is reliable. This represents a severe computer problem. - Constitutional Vitals: Temp Pulse Resp BP Pulse Ox 98.1 F 72 18 148/86 90 08/12/17 11:26 08/12/17 11:26 08/12/17 11:26 08/12/17 11:26 08/12/17 11:26 General appearance: Present: cooperative, pleasant, obese, answers questions appropriately Exam: Examination: (Except as mentioned above): General: In no apparent distress. Alert and oriented 3. Nondiaphoretic. Head: Atraumatic and normocephalic. Respiratory: No use of accessory muscles. Lungs are unchanged from yesterday but still with diffuse sonorous rhonchi. No wheezes. Normal airflow. Cardiovascular: Regular rate and rhythm without murmur appreciated. Abdomen: Bowel sounds are normal. No hepatosplenomegaly mass or tenderness appreciated. Obese and therefore difficult to palpate deeply. Patient is examined upright in chair and this also limits exam. Extremities: No cyanosis clubbing or edema. Skin: Warm and non-diaphoretic with no new lesions noted. Internal Medicine: Result - Labs CBC & Chem 7: 08/13/17 12:40 08/13/17 12:40 - ABG Interpretation ABG results: ABG ABG pH 7.30 pH Units (7.32-7.45) L 08/08/17 15:17 ABG pCO2 54 mmHg (35-45) H 08/08/17 15:17 ABG pO2 63 mmHg (85-104) L 08/08/17 15:17 ABG O2 Saturation 89 % (95-98) L 08/08/17 15:17 - VTE Reasons for not Prescribing Prophylaxis: Treatment not Indicated - Low risk for VTE Documentation of Mechanical Device: Graduated compression elastic hosiery Consult Discharge Plan - Plan Referrals: Niac Smith, DONOR RELATIONS MANAGER [Primary Care Provider] -
[2017-08-12] MEDS: Melatonin 3 MG TABLET PO SCH (21:17)
[2017-08-12] MEDS: traZODone 50 MG TABLET PO SCH (21:18)
[2017-08-12] MEDS: Insulin DETEMIR 100 UNIT/ML X5UNITS SQ SCH (21:20)
[2017-08-13] MEDS: Ipratropium/Albuterol Neb 3 ML IH SCH ×4 (01:20→10:54)
[2017-08-13] MEDS: *HR* Enoxaparin 40 MG/0.4 ML SYRINGE SQ SCH (06:09)
[2017-08-13] MEDS: methylPREDNISolone 125 MG/2 ML VIAL IVP SCH ×2 (06:09→11:54)
[2017-08-13] MEDS: Insulin LISPRO 300 UNITS/3 ML VIAL SQ SCH ×2 (08:09→12:36)
[2017-08-13] MEDS: Insulin DETEMIR 100 UNIT/ML X5UNITS SQ SCH (09:07)
[2017-08-13] MEDS: Ranolazine 500 MG TAB.ER.12H PO SCH (09:08)
[2017-08-13] MEDS: Gabapentin 300 MG CAPSULE PO SCH (09:08)
[2017-08-13] MEDS: Lisinopril 20 MG TABLET PO SCH (09:08)
[2017-08-13] MEDS: Aspirin Enteric Coated 81 MG Tablet PO SCH (09:08)
[2017-08-13] MEDS: Loratadine 10 MG TABLET PO SCH (09:08)
[2017-08-13] MEDS: *HR* Metformin 500 MG TABLET PO SCH (09:09)
[2017-08-13] MEDS: Budesonide/Formoterol 160/4.5 MDI IH SCH (09:11)
[2017-08-13] MEDS: Nitroglycerin 0.4 MG TAB.SUBL SL PRN ×3 (11:12→11:33)
[2017-08-13 11:42] VITALS: BP 138/72
[2017-08-13 12:06] LABS: ABG Base Excess 7 mEq/L (-2 to 3); ABG HCO3 32 mEq/L (21-27); ABG Oxygen Saturation 81 % (95-98); ABG PCO2 47 mmHg (35-45); ABG PH 7.45 pH Units (7.32-7.45); ABG PO2 44 mmHg (85-104); ABG TCO2 34 mEq/L (20-26)
[2017-08-13] MEDS: Azithromycin 250 MG TABLET PO SCH (12:35)
[2017-08-13 12:51] LABS: Basophils % 0.2 %; Hematocrit 44.8 % (35.3-44.9); Hemoglobin 15.2 g/dL (11.5-15.4); Immature Granulocytes % 1.4 % (0-4); Lymphocytes # 1.3 K/mcL (0.6-4.6); Lymphocytes % 15.3 %; Mean Corpuscular HGB Conc 33.9 g/dL (31.6-35.5); Mean Corpuscular Hemoglobin 31.3 pg (28.0-33.3); Mean Corpuscular Volume 92.2 fL (83.0-100.0); Mean Platelet Volume 11.6 fL (9.4-12.4); Monocytes # 0.5 K/mcL (0.0-1.3); Monocytes % 5.7 %; Neutrophils # 6.8 K/mcL (1.6-8.9); Platelet Count 178 K/mcL (140-400); Red Blood Count 4.86 M/mcL (3.82-4.97); Red Cell Distribution Width 12.6 % (11.5-14.5); Segmented Neutrophils % 77.4 %
[2017-08-13 13:13] LABS: BUN/Creatinine Ratio 57 (6-26); Blood Urea Nitrogen 40 mg/dL (6-20); Calcium 9.1 mg/dL (8.6-10.3); Carbon Dioxide 36 mEq/L (23-29); Chloride 96 mEq/L (98-107); Glucose 325 mg/dL (70-105); Osmolality,Calculated 308 (280-300); Sodium 138 mEq/L (136-145); eGFR For African Americans > 60 (> 60); eGFR For Non-African Americans > 60 (> 60)
[2017-08-13 13:14] LABS: Troponin I < 0.03 ng/mL (< 0.04)
--- NOTE | 2017-08-13 15:20 | Discharge Summary ---
Orders not resulted at time of discharge: Pending orders 08/12/17 14:00 EKG [ECG 12 lead ECG] [ECG] Routine 08/13/17 12:22 ECG 12 lead ECG [ECG] Stat 08/13/17 18:30 Troponin I Q6H 08/14/17 00:30 Troponin I Q6H Date of Encounter: 08/13/17 Time of Encounter: 14:15 - Discharge Diagnosis (1) Acute exacerbation of chronic obstructive pulmonary disease (COPD) Priority: Primary Status: Acute (2) Diabetes type 2, controlled Priority: Secondary Status: Acute Qualifiers: Diabetes mellitus half-way insulin use: without oil heaterman use Diabetes mellitus complication status: without complication Qualified Code(s): E11.9 - Type 2 diabetes mellitus without complications (3) CAD (coronary artery disease) Priority: Secondary Status: Chronic Qualifiers: Coronary Disease-Associated Artery/Lesion type: [place] artery [place] vs. transplanted heart: [place] heart Associated angina: without angina Qualified Code(s): I25.10 - Atherosclerotic heart disease of [place] coronary artery without angina pectoris (4) Essential hypertension Priority: Secondary Status: Acute Hospital course: Ms. Espinoza is a 56 year old female who has COPD as noted. She has failed to improve. Had problems with breathing and hypoxia which were worse this morning. Developed chest pain which did not fully respond to nitroglycerin sublingual. EKG was unchanged and troponins were pending at the time of discharge. She was admitted, treated with oral azithromycin and IV steroids without much improvement. She was found to have severe COPD and was treated with BiPAP and oxygen, as well. See note from yesterday for my last visit. Because patient was worse and had unresolved coronary situation, again called hospitalist at [facility] who agreed to accept in transfer. See laboratory , ABGs, etc. EMS was called and patient was leaving at the time I arrived. She appeared in no acute distress and was comfortable but a formal exam or visit was not obtained. - Time Spent with Patient Total time spent providing and/or coordinating discharge services: - Discharge Medications Home Medications: Albuterol Sulfate [Albuterol Inhaler] 2 puff IH Q4HR 01/09/16 [History] Aspirin [Lo-Dose Aspirin EC] 81 mg PO DAILY 01/09/16 [History] Budesonide/Formoterol 160/4.5 [Symbicort 160/4.5] 1 puff IH DAILY 01/09/16 [ History] Ibuprofen [Motrin] 600 mg PO Q8HR PRN 01/09/16 [History] Loratadine [Allergy Relief] 10 mg PO DAILY 01/09/16 [History] Melatonin 5 mg PO HS 01/09/16 [History] Metoprolol [Lopressor] 50 mg PO BID 01/09/16 [History] Nitroglycerin [Nitrostat] 0.4 mg SL PRN PRN 01/09/16 [History] Omeprazole [PriLOSEC] 20 mg PO DAILY 01/09/16 [History] Ondansetron ODT [Zofran ODT] 4 mg SL Q6HR PRN #12 tab.rapdis 01/09/16 [Rx] Ranolazine [Ranexa] 1,000 mg PO BID 01/09/16 [History] TraZODone 50 mg PO HS 01/09/16 [History] metFORMIN [Glucophage] 500 mg PO DAILY 01/09/16 [History] Cholecalciferol (Vitamin D3) [Vitamin D3] 2,000 unit PO 08/07/17 [History] Clopidogrel [Plavix] 75 mg PO DAILY 08/07/17 [History] Cyanocobalamin (Vitamin B-12) [Vitamin B-12] 1,000 mcg PO DAILY 08/07/17 [ History] Gabapentin [Neurontin] 300 mg PO TID 08/07/17 [History] Lisinopril [Zestril] 20 mg PO DAILY 08/07/17 [History] Pantoprazole Sodium [Protonix] 40 mg PO QAM 08/07/17 [History] Rosuvastatin Calcium [Crestor] 10 mg PO DAILY 08/07/17 [History] Allergies/Adverse Reactions: 3 Allergy/AdvReac Type Severity Reaction Status Date / Time aminophylline Allergy Anaphylaxis Verified 08/07/17 19:55 atorvastatin AdvReac Gastrointestinal Verified 08/07/17 19:55 Upset Penicillins AdvReac Hives Verified 08/07/17 19:55 Sulfa (Sulfonamide AdvReac Hives Verified 08/07/17 19:55 Antibiotics) regadenosen Allergy Swelling Uncoded 08/07/17 19:55 of Lip/Tongue/Throat Date of admission: 08/09/17 14:50 Primary care physician: Nica M Smith, C - Constitutional Vitals: Temp Pulse Resp BP Pulse Ox 98.6 F 72 24 138/72 86 08/13/17 11:41 08/13/17 11:41 08/13/17 11:41 08/13/17 11:41 08/13/17 11:41 General appearance: Present: cooperative, pleasant, obese, answers questions appropriately - Patient Status Disposition: Transfer Critical Access Hosp Condition: Good - Discharge Instructions Follow Up With: Nica Smith, PORTAL ARCHITECT [Primary Care Provider] - Forms: ED Satisfaction Letter - VTE Reasons for not Prescribing Prophylaxis: Treatment not Indicated - Low risk for VTE Documentation of Mechanical Device: Graduated compression elastic hosiery
--- NOTE | 2017-08-14 14:26 | Electrocardiograph Report ---
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
--- NOTE | 2017-08-14 14:42 | Electrocardiograph Report ---
[address] [place], [place] [address] Test Date: 2017-08-13 Pat Name: Lucita Espinoza Department: 2001 Room: 114 Gender: F Order Manager: : [id number] Requested By: [id number] Order Number: [id number] Sandra MD: Ruth Ann Lopez Measurements Intervals [place] Rate: 67 P: 65 [place]: 128 QRS: 51 QRSD: 90 T: 76 QT: 407 QTc: 423 Interpretive Statements SINUS RHYTHM Electronically Signed On 08-14-2017 14:40:32 EDT by Ruth Ann Lopez
== END 2017-08-13 15:00 | disposition critical access hospital (66) | DRG 140 ==
LOC: EMEROOGRE 19:43 → INPGRE 19:43